=== PATIENT | male | born 1960 | race Asian ===

== ENCOUNTER 2017-07-04 09:29 | Emergency (ER) | payer OTHER ==
[~2017-07-04] VITALS: Ht 157.5 cm; Wt 57.6 kg
--- NOTE | 2017-07-04 09:29 | NUR ---
BIB [facility] 59,[employer]ED [employer] AND ACTING CONFUSED WHEN EMS ARRIVED ON SCENE,STS HE WAS JUST SLEEPY. SEIZURE PRECAUTION IN PLACED. PLACED ON MONITOR. AWAITING MD ORDER
--- NOTE | 2017-07-04 09:40 | NUR ---
DR MAI AT BEDSIDE FOR EVAL
--- NOTE | 2017-07-04 09:40 | NUR ---
LAC #20 IV ACCESS. BLOOD SAMPLE COLLECTED SENT TO LAB
--- NOTE | 2017-07-04 09:40 | NUR ---
EKG IN PROGRESS
[2017-07-04 09:46] LABS: BASOPHILS % (AUTO) 0.6 % (0.0-2.0); EOSINOPHILS % (AUTO) 0.9 % (0.0-6.0); HEMATOCRIT 43 % (39-51); HEMOGLOBIN 14.5 g/dL (13.5-17.5); LYMPHOCYTES # (AUTO) 1.7 /CMM (0.8-4.8); MEAN CORPUSCULAR HEMOGLOBIN 33 PG (26.0-33.0); MEAN CORPUSCULAR HGB CONC 34 g/dl (31.0-36.0); MEAN CORPUSCULAR VOLUME 96 fL (80-96); MONOCYTES # (AUTO) 0.4 /CMM (0.1-1.30); MONOCYTES % (AUTO) 8.1 % (2.0-12.0); NEUTROPHILS # (AUTO) 2.6 /CMM (1.8-8.9); NEUTROPHILS % (AUTO) 55.4 % (43.0-81.0); PLATELET COUNT (AUTO) 263 /CMM (150-450); RDW COEFFICIENT OF VARIATION 12.4 (11.5-15.0); RED BLOOD CELL COUNT(AUTO) 4.45 MIL/uL (4.5-6.0); WHITE BLOOD COUNT (AUTO) 4.7 K/uL (4.3-11.0)
--- NOTE | 2017-07-04 09:46 | NUR ---
PT TAKEN TO CT
[2017-07-04 09:57] LABS: INR 0.91 (0.87-1.13); PROTHROMBIN TIME 9.5 SECS (9.5-12.7)
[2017-07-04 10:02] LABS: ALBUMIN 3.7 g/dL (3.4-5.0); BILIRUBIN,DIRECT 0.2 mg/dL (0.0-0.2); BILIRUBIN,TOTAL 0.7 mg/dL (0.2-1.0); CREATININE 1.1 mg/dL (0.6-1.3)
--- NOTE | 2017-07-04 11:09 | NUR ---
URINE SAMPLE COLLECTED SENT TO LAB
[2017-07-04 11:19] LABS: APPEARANCE,URINE Clear (CLEAR); BILIRUBIN,URINE Negative (NEGATIVE); BLOOD, URINE Trace-intact Ery/uL (NEGATIVE); COLOR,URINE Yellow (YELLOW); KETONES,URINE Negative (NEGATIVE); LEUKOCYTE ESTERASE ,URINE Negative (NEGATIVE); NITRITE, URINE Negative (NEGATIVE); PROTEIN,URINE Negative (NEGATIVE); UGLUCOSE Negative (NEGATIVE); UROBILINOGEN,URINE 0.2 EU/dL (0.2)
[2017-07-04 11:32] LABS: POTASSIUM 4.8 mmol/L (3.5-5.1)
[2017-07-04 11:35] LABS: BACTERIA,URINE None seen /HPF (None Seen); RBC,URINE 0-2 /HPF (0-2); SQUAMOUS EPITHELIAL CELL,UR None Seen /HPF (None Seen); WBC,URINE NONE SEEN /HPF (0-3)
--- NOTE | 2017-07-04 12:16 | NUR ---
Patient discharged to home in stable condition. Written and verbal after care instructions given. Patient verbalizes understanding of instruction.
--- NOTE | 2017-07-04 12:16 | NUR ---
SENT LETTER TO [facility] NOTIFYING PT HAS SEIZURE INSTRUCTED PT NOT TO DRIVE
--- NOTE | 2017-07-04 12:16 | NUR ---
IV removed. Catheter intact and site benign. Pressure and 4x4 applied to site. No bleeding noted.
[2017-07-04 12:18] VITALS: BP 137/87
== END 2017-07-04 12:18 | disposition home or self-care (01) ==
LOC: ER 09:31
DX: R56.9 Unspecified convulsions (principal); R79.1 Abnormal coagulation profile
CPT/HCPCS: 36415; 70450-TC; 80048-TC; 80076-TC; 80305; 81000-TC; 82962-TC; 85025-TC; 85730-TC; A4606; G0480; Z7610